=== PATIENT | female | born 1950 | race African-American/Black ===

== ENCOUNTER 2018-01-24 08:15 | Emergency (ER) | payer MEDICARE, OTHER ==
[~2018-01-24] VITALS: Ht 167.6 cm; Wt 54.1 kg
[~2018-01-24 08:15] MED LIST: BUPR100SR PO; CALC-895 PO; FERR324T4 PO; IBUP-2070 PO
[2018-01-24 09:20] VITALS: BP 122/85
== END 2018-01-24 09:45 | disposition home or self-care (01) ==
LOC: EMS 08:16
DX: N28.9 Disorder of kidney and ureter, unspecified (principal); I10 Essential (primary) hypertension
CPT/HCPCS: 99281